=== PATIENT | female | born 1980 | race Caucasian/White ===

== ENCOUNTER 2017-04-16 11:41 | Emergency (ER) | payer BC ==
[~2017-04-16] VITALS: Ht 177.8 cm; Wt 117.9 kg
[~2017-04-16 11:41] MED LIST: PAXIL40 MG PO; PROTONIX40 MG PO; RISPERDAL 1 MG T1 MG PO; XANAX XR1 MG PO
[2017-04-16] MEDS ORDERED: LAMICTAL100 MG PO (11:54)
[2017-04-16] MEDS ORDERED: DEPAKOTE500 MG PO (11:55)
[2017-04-16] MEDS ORDERED: IBUPROFEN 600600 M1 PO (12:49)
[2017-04-16] MEDS ORDERED: TIZANIDINE HCL4 MG PO (12:49)
[2017-04-16 14:21] VITALS: BP 124/73
== END 2017-04-16 14:23 | disposition home or self-care (01) ==
LOC: ER 11:41
DX: S16.1XXA Strain of muscle, fascia and tendon at neck level, initial encounter (principal); S80.01XA Contusion of right knee, initial encounter; F43.10 Post-traumatic stress disorder, unspecified; F32.9 Major depressive disorder, single episode, unspecified; F41.9 Anxiety disorder, unspecified; G70.00 Myasthenia gravis without (acute) exacerbation; F17.210 Nicotine dependence, cigarettes, uncomplicated; F10.99 Alcohol use, unspecified with unspecified alcohol-induced disorder; Z91.040 Latex allergy status; V89.2XXA Person injured in unspecified motor-vehicle accident, traffic, initial encounter; Y93.I9 Activity, other involving external motion; Y92.89 Other specified places as the place of occurrence of the external cause; Y99.8 Other external cause status